=== PATIENT | female | born 1975 | race Caucasian/White ===

== ENCOUNTER 2016-05-23 18:28 | Emergency (ER) | payer OTHER ==
[~2016-05-23] VITALS: Wt 60.0 kg
[~2016-05-23 18:28] MED LIST: IBUP-1542 PO
[2016-05-23] MEDS ORDERED: BELLADONNA/PHENOBARBITAL TAB PO STA (20:37)
[2016-05-23] MEDS ORDERED: LIDOCAINE/MYLANTA 40 ML BTL PO STA (20:37)
[2016-05-23] MEDS ORDERED: IBUPROFEN 600 MG TAB PO ONE (21:00)
[2016-05-23 21:12] LABS: ADD UMIC NO; URINE BILIRUBIN (Dip) NEGATIVE (NEGATIVE); URINE BLOOD (Dip) NEGATIVE (NEGATIVE); URINE COLOR LT. YELLOW (YELLOW); URINE GLUCOSE (Dip) NEGATIVE (NEGATIVE); URINE KETONES (Dip) TRACE (NEGATIVE); URINE LEUKOCYTE ESTERASE (Dip) NEGATIVE (NEGATIVE); URINE NITRITE (Dip) NEGATIVE (NEGATIVE); URINE TOTAL PROTEIN (Dip) NEGATIVE (NEGATIVE); URINE UROBILINOGEN (Dip) 0.2 E.U./dL (0.1-1.0)
[2016-05-23] MEDS ORDERED: IBUP-1542 PO (21:26)
[2016-05-23] MEDS ORDERED: FAMO40TA52 PO (21:26)
[2016-05-23 21:34] VITALS: BP 117/68; PULSE 68; RESP 20; TEMP 98.8
--- NOTE | 2016-05-23 22:39 | ERD ---
ER Documentation Chief Complaint Date/Time DATE: 05/23/16 TIME: 22:37 Chief Complaint intermittent mid abd pain rad into rlq HPI 40-year-old woman presents with sharp severe periumbilical abdominal pain lasting for a few seconds. She states she's had 2 previous episodes one last week and one about 3 weeks ago which resolved spontaneously and lasted for a few seconds each. She denies diarrhea, no constipation, no fevers or chills, no loss of appetite, no chest pain or shortness of breath. Vision denies pelvic pain or dysuria, no vaginal discharge. ROS All systems reviewed and are negative except as per history of present illness. Medications Home Meds Active Scripts Famotidine* (Famotidine*) 40 Mg Tablet, 40 MG PO HS, #30 TAB Prov:SUSHMA MALDONADO MD 05/23/16 Ibuprofen* (Motrin*) 600 Mg Tab, 600 MG PO Q8 Y for PAIN AND/OR INFLAMMATION, # 30 TAB Prov:SUSHMA MALDONADO MD 05/23/16 Ibuprofen* (Motrin*) 600 Mg Tab, 600 MG PO Q6H Y for PAIN AND OR ELEVATED TEMP, #30 TAB Prov:EUNICE HAMILTON NP 08/11/15 Allergies Allergies: Coded Allergies: No Known Allergy (Unverified , 10/07/15) PMhx/Soc None Medical and Surgical Hx: pt denies Medical Hx History of Surgery: No ([facility] 2013) Anesthesia Reaction: No Hx Neurological Disorder: No Hx Respiratory Disorders: No Hx Cardiac Disorders: No Hx Psychiatric Problems: No Hx Miscellaneous Medical Probl: No Hx Alcohol Use: No Hx Substance Use: No Hx Tobacco Use: No Smoking Status: Never smoker FmHx Family History: No diabetes Physical Exam Vitals Vital Signs Date Time Temp Pulse Resp B/P Pulse Ox O2 Delivery O2 Flow Rate FiO2 05/23/16 21:34 98.8 68 20 117/68 100 05/23/16 19:28 98.8 77 20 119/72 100 Physical Exam GENERAL: Well-developed, well-nourished, well-hydrated, in no apparent distress , looks nontoxic in appearance HEENT: Moist mucous membranes, pink conjunctiva, no cervical spine tenderness or step-off deformities, no goiter, no jaundice or icterus, extraocular movements intact without pain. No submandibular induration, and no pharyngeal erythema NEURO: Alert and oriented 3, cranial nerves II through XII intact bilaterally, pupils equal round reactive to light, no focal deficits or facial asymmetry, sensation intact distally Strength 5/5 in upper and lower extremities bilaterally CARDIAC: Regular rate and rhythm, no murmurs rubs or gallops LUNGS: Clear bilaterally no wheezing crackles or stridor ABDOMEN: Soft nontender, no guarding, no rigidity, no rebound, no psoas sign no obturator sign. Normoactive bowel sounds SKIN: Warm and dry to touch, no abrasions, contusions, or hematomas, no lacerations, no ecchymosis, no target lesions, and without ulcers EXTREMITIES: No clubbing cyanosis or edema, calves are bilaterally symmetrical, no Homans sign, no popliteal cord sign. Distal pulses equal and bilateral PSYCH: Normal affect without agitation or irritability Results 24 hrs Laboratory Tests Test 05/23/16 20:46 Urine Bilirubin NEGATIVE Urine Clarity CLEAR Urine Color LT. YELLOW Urine Glucose NEGATIVE% Urine Hemoglobin NEGATIVE Urine Ketones TRACE Urine Leukocyte Esterase NEGATIVE Urine Nitrite NEGATIVE Urine Specific Baker 1.015 Urine Total Protein NEGATIVE Urine Urobilinogen 0.2 E.U./dL Urine pH 6.5 Current Medications Medications (Trade) Dose Ordered Sig/Ian Route PRN Reason Start Time Stop Time Status Last Admin Dose Admin Ibuprofen (Motrin) 600 mg ONCE ONCE PO 05/23/16 21:00 05/23/16 21:01 DC 05/23/16 21:20 Miscellaneous Medication (Gi Cocktail (2)) 40 ml ONCE STAT PO 05/23/16 20:37 05/23/16 20:39 DC 05/23/16 21:20 Belladonna/ Phenobarbital () 2 tab ONCE STAT PO 05/23/16 20:37 05/23/16 20:39 DC 05/23/16 21:20 Procedures/MDM I administered ibuprofen 600 mg by mouth and a GI cocktail 50 mL by mouth with good effect. test was negative, urinalysis was negative for infection. No indication at this time for any further intervention, imaging or admission, patient's vital signs are normal exam is normal, symptoms have resolved. Differential diagnoses considered, included but not limited to acute coronary syndrome, pulmonary embolism, aortic dissection, abdominal aortic aneurysm, sepsis, stroke, meningitis, encephalitis, pneumonia, appendicitis, cholecystitis , bowel obstruction, pyelonephritis, nephrolithiasis, cystitis, as well as metabolic, hematologic, and electrolyte abnormalities. As well as abscess, cellulitis, fractures, and dislocations. Patient feels much better at this time, and vital signs are normal, symptoms have improved. I did give strict instructions to return to the ED if symptoms continue or worsen, patient will otherwise follow-up with primary care physician. Patient understood instructions and agreed to plan. Departure Diagnosis: Primary Impression: Abdominal pain Abdominal location: periumbilical Qualified Code: R10.33 - Periumbilical abdominal pain Condition: Good Patient Instructions: Abdominal Pain SUSHMA MALDONADO MD May 23, 2016 22:39
== END 2016-05-23 21:34 | disposition home or self-care (01) ==
LOC: FTE 18:28
DX: R10.33 Periumbilical pain (principal)
CPT/HCPCS: 81003; Z7502; Z7610; 99283